=== PATIENT | female | born 1990 | race American Indian/Alaskan Native ===

== ENCOUNTER 2017-07-11 14:27 | Emergency (ER) | payer SELFPAY ==
[2017-07-11] MEDS ORDERED: BENADRYL IV ONE (14:39)
[2017-07-11] MEDS ORDERED: NACL 0.9% 1000 ML 1,000 ML IV ONE (14:39)
[2017-07-11] MEDS ORDERED: PEPCID IV ONE (14:39)
--- NOTE | 2017-07-11 16:03 | Emergency Department Report ---
ED Allergic Reaction HPI - General Chief complaint: Allergic Reaction Stated complaint: ALLERGIC REACTION Time Seen by Provider: 07/11/17 14:39 Source: patient Mode of arrival: Ambulatory Limitations: No Limitations - History of Present Illness Initial Comments: This is a 26-year-old female nontoxic, well nourished in appearance, no acute signs of distress presents to the ED with c/o of allergic reactions and hives x1 hour. Patient stated she was using a clean solution and spilled on her body and developed itching and hives right away. Patient denies difficulty breathing , facial swelling, lip swelling, shortness of breath, fever, chills, nausea, vomiting, chest pain. Patient states has history of similar episode. Patient states allergies to Motrin and Tylenol with past medical history of eczema and chronic hives. MD Complaint: allergic reaction, hives -: This afternoon Exposure: other (chemical products) Symptoms: rash, itching. denies: facial swelling, lip swelling, difficulty swallowing, difficulty breathing, orolingual swelling, hoarseness, syncopy, dizziness, nausea, vomiting, abdominal pain Severity: mild Treatment Prior to Arrival: none Previous Allergy History: prior ED visit(s) - Related Data Previous Rx's Medication Instructions Recorded Last Taken Type hydrOXYzine PAMOATE [Vistaril] 25 mg PO Q6HR PRN #30 capsule 04/06/15 Unknown Rx EPINEPHrine (NF) [Epipen (Nf)] 0.3 mg IM ONCE #1 syringekit 07/27/15 Unknown Rx Prednisone [predniSONE 10 mg 10 mg PO .TAPER #1 tab.ds.pk 07/27/15 Unknown Rx (6-Day Pack, 21 Tabs)] predniSONE [Deltasone] 40 mg PO QDAY #8 tab 01/22/16 Unknown Rx Famotidine [Pepcid] 20 mg PO BID #10 tablet 02/25/16 Unknown Rx diphenhydrAMINE [Benadryl CAP] 50 mg PO Q8HR PRN #20 capsule 03/20/16 Unknown Rx EPINEPHrine [Epipen 2-Johann] 0.3 mg IM DAILY PRN #2 ml 04/14/16 Unknown Rx Famotidine [Pepcid] 20 mg PO BID #14 tablet 04/14/16 Unknown Rx Prednisone [predniSONE 10 mg 10 mg PO .TAPER #1 tab.ds.pk 04/14/16 Unknown Rx (6-Day Pack, 21 Tabs)] diphenhydrAMINE [Benadryl CAP] 25 mg PO Q6HR PRN #30 capsule 04/14/16 Unknown Rx diphenhydrAMINE [Benadryl CAP] 25 mg PO Q6HR PRN #20 capsule 07/11/17 Unknown Rx predniSONE [Deltasone] 40 mg PO QDAY #5 tab 07/11/17 Unknown Rx Allergies Allergy/AdvReac Type Severity Reaction Status Date / Time acetaminophen [From Tylenol] Allergy Hives Verified 02/28/15 13:46 ibuprofen [From Advil] Allergy Hives Verified 02/28/15 13:46 ED Review of Systems ROS: Stated complaint: ALLERGIC REACTION Other details as noted in HPI Constitutional: denies: chills, fever Eyes: denies: eye pain, eye discharge, vision change ENT: denies: ear pain, throat pain Respiratory: denies: cough, shortness of breath, wheezing Cardiovascular: denies: chest pain, palpitations Endocrine: no symptoms reported Gastrointestinal: denies: abdominal pain, nausea, diarrhea Genitourinary: denies: urgency, dysuria, discharge Musculoskeletal: denies: back pain, joint swelling, arthralgia Skin: rash. denies: lesions Neurological: denies: headache, weakness, paresthesias Psychiatric: denies: anxiety, depression Hematological/Lymphatic: denies: easy bleeding, easy bruising ED Past Medical Hx - Past Medical History Previous Medical History?: Yes Additional medical history: eczema. Chronic hives - Surgical History Past Surgical History?: No - Social History Smoking Status: Former Smoker Substance Use Type: Alcohol, Non Opiate Pain - Medications Home Medications: Home Medications Medication Instructions Recorded Confirmed Last Taken Type hydrOXYzine PAMOATE [Vistaril] 25 mg PO Q6HR PRN #30 capsule 04/06/15 Unknown Rx EPINEPHrine (NF) [Epipen (Nf)] 0.3 mg IM ONCE #1 syringekit 07/27/15 Unknown Rx Prednisone [predniSONE 10 mg 10 mg PO .TAPER #1 tab.ds.pk 07/27/15 Unknown Rx (6-Day Pack, 21 Tabs)] predniSONE [Deltasone] 40 mg PO QDAY #8 tab 01/22/16 Unknown Rx Famotidine [Pepcid] 20 mg PO BID #10 tablet 02/25/16 Unknown Rx diphenhydrAMINE [Benadryl CAP] 50 mg PO Q8HR PRN #20 capsule 03/20/16 Unknown Rx EPINEPHrine [Epipen 2-Johann] 0.3 mg IM DAILY PRN #2 ml 04/14/16 Unknown Rx Famotidine [Pepcid] 20 mg PO BID #14 tablet 04/14/16 Unknown Rx Prednisone [predniSONE 10 mg 10 mg PO .TAPER #1 tab.ds.pk 04/14/16 Unknown Rx (6-Day Pack, 21 Tabs)] diphenhydrAMINE [Benadryl CAP] 25 mg PO Q6HR PRN #30 capsule 04/14/16 Unknown Rx diphenhydrAMINE [Benadryl CAP] 25 mg PO Q6HR PRN #20 capsule 07/11/17 Unknown Rx predniSONE [Deltasone] 40 mg PO QDAY #5 tab 07/11/17 Unknown Rx ED Physical Exam - General Limitations: No Limitations General appearance: alert, in no apparent distress - Head Head exam: Present: atraumatic, normocephalic - Eye Eye exam: Present: normal appearance, PERRL, EOMI. Absent: scleral icterus, conjunctival injection, nystagmus, periorbital swelling, periorbital tenderness Pupils: Present: normal accommodation - ENT ENT exam: Present: normal exam, normal orophraynx, mucous membranes moist, TM's normal bilaterally, normal external ear exam - Neck Neck exam: Present: normal inspection, full ROM. Absent: tenderness, meningismus, lymphadenopathy, thyromegaly - Respiratory Respiratory exam: Present: normal lung sounds bilaterally. Absent: respiratory distress, wheezes, rales, rhonchi, stridor, chest wall tenderness, accessory muscle use, decreased breath sounds, prolonged expiratory - Cardiovascular Cardiovascular Exam: Present: regular rate, normal rhythm, normal heart sounds. Absent: bradycardia, tachycardia, irregular rhythm, systolic murmur, diastolic murmur, rubs, gallop - GI/Abdominal GI/Abdominal exam: Present: soft, normal bowel sounds. Absent: distended, tenderness, guarding, rebound, rigid, diminished bowel sounds - Rectal Rectal exam: Present: deferred - Extremities Exam Extremities exam: Present: normal inspection, full ROM, normal capillary refill. Absent: tenderness, pedal edema, joint swelling, calf tenderness - Back Exam Back exam: Present: normal inspection, full ROM. Absent: tenderness, CVA tenderness (R), CVA tenderness (L), muscle spasm, paraspinal tenderness, vertebral tenderness, rash noted - Neurological Exam Neurological exam: Present: alert, oriented X3, CN II-XII intact, normal gait, reflexes normal - Psychiatric Psychiatric exam: Present: normal affect, normal mood - Skin Skin exam: Present: warm, dry, intact, normal color, rash, urticaria - Other Other exam information: No facial swelling or lip swelling. No angio edema. ED Course Vital Signs 07/11/17 07/11/17 14:30 14:50 Temperature 98.4 F Pulse Rate 89 Respiratory 22 22 Rate Blood Pressure 119/57 O2 Sat by Pulse 99 99 Oximetry - Reevaluation(s) Reevaluation #1: 07/11/17 16:04 Patient is speaking in full sentences with no signs of distress noted. ED Medical Decision Making - Medical Decision Making his is a 26-year-old female who presents with reaction. Patient stable and was examined by me. There is no sign of angioedema on examination. The patient received 1 L normal saline, Pepcid, Benadryl, and Solu-Medrol which patient stated his symptoms itching and rash has significantly subsided. Patient was instructed not to operate any machinery after discharge from his Benadryl which patient stated she was at a family member driving her home. She is discharged with prednisone and Benadryl. Patient was instructed Follow-up with a primary care doctor in 3-5 days for possible given prescription for EpiPen or if symptoms worsen and continue return to emergency room as soon as possible. At time time of discharge, the patient does not seem toxic or ill in appearance. No acute signs of distress noted. Patient agrees to discharge treatment plan of care. No further questions noted by the patient. Critical care attestation.: If time is entered above; I have spent that time in minutes in the direct care of this critically ill patient, excluding procedure time. ED Disposition Clinical Impression: Allergic reaction Qualifiers: Encounter type: initial encounter Qualified Code(s): T78.40XA - Allergy, unspecified, initial encounter Disposition: -01 TO HOME OR SELFCARE Is pt being admited?: No Does the pt Need Aspirin: No Condition: Stable Instructions: Urticaria (ED), Allergies (ED), Prednisone (By mouth), Diphenhydramine (By mouth) Additional Instructions: Follow-up with a primary care doctor in 3-5 days for possible given prescription for EpiPen or if symptoms worsen and continue return to emergency room as soon as possible. Do not operate any machinery after discharge due to drowsiness of Benadryl Prescriptions: diphenhydrAMINE [Benadryl CAP] 25 mg PO Q6HR PRN #20 capsule PRN Reason: Itching predniSONE [Deltasone] 40 mg PO QDAY #5 tab Referrals: MEGAN STRINGER MD [Primary Care Provider] - 3-5 Days PRIMARY CARE, [Referring] - 3-5 Days [facility] [Outside] - 3-5 Days [facility] [Outside] - 3-5 Days Forms: Work/School Release Form(ED)
[2017-07-11 16:14] VITALS: BP 135/83
== END 2017-07-11 16:15 | disposition home or self-care (01) ==
LOC: ED 14:27
DX: T78.40XA Allergy, unspecified, initial encounter (principal); Z87.891 Personal history of nicotine dependence; Z88.6 Allergy status to analgesic agent; X58.XXXA Exposure to other specified factors, initial encounter
CPT/HCPCS: 96361; 96374; 96375; 99282; J1200; J2930; J7030

== ENCOUNTER 2017-11-28 14:48 | Emergency (ER) | payer SELFPAY ==
[2017-11-28 19:11] VITALS: BP 120/72
--- NOTE | 2017-11-28 19:35 | Emergency Department Report ---
HPI - General Chief Complaint: Allergic Reaction Time Seen by Provider: 11/28/17 19:26 - HPI HPI: 27-year-old -[place] female comes in for having hives itching in hoarseness. Patient reports that she's had allergy testing that was negative for any allergens. Patient has prescribed Pepcid, Benadryl and anti-itch medicine that relieves his symptoms. Patient has been on the medication for the last 3 months she reports she is out of meds. ED Past Medical Hx - Past Medical History Previous Medical History?: No Additional medical history: eczema. Chronic hives - Surgical History Past Surgical History?: No - Social History Smoking Status: Never Smoker Substance Use Type: Alcohol - Medications Home Medications: Home Medications Medication Instructions Recorded Confirmed Last Taken Type EPINEPHrine (NF) [Epipen (Nf)] 0.3 mg IM ONCE #1 syringekit 07/27/15 Unknown Rx Prednisone [predniSONE 10 mg 10 mg PO .TAPER #1 tab.ds.pk 07/27/15 Unknown Rx (6-Day Pack, 21 Tabs)] predniSONE [Deltasone] 40 mg PO QDAY #8 tab 01/22/16 Unknown Rx Famotidine [Pepcid] 20 mg PO BID #10 tablet 02/25/16 Unknown Rx diphenhydrAMINE [Benadryl CAP] 50 mg PO Q8HR PRN #20 capsule 03/20/16 Unknown Rx EPINEPHrine [Epipen 2-Johann] 0.3 mg IM DAILY PRN #2 ml 04/14/16 Unknown Rx diphenhydrAMINE [Benadryl CAP] 25 mg PO Q6HR PRN #30 capsule 04/14/16 Unknown Rx diphenhydrAMINE [Benadryl CAP] 25 mg PO Q6HR PRN #20 capsule 07/11/17 Unknown Rx predniSONE [Deltasone] 40 mg PO QDAY #5 tab 07/11/17 Unknown Rx Famotidine [Pepcid] 20 mg PO BID #14 tablet 11/28/17 Unknown Rx Prednisone [predniSONE 10 mg 10 mg PO .TAPER #1 tab.ds.pk 11/28/17 Unknown Rx (6-Day Pack, 21 Tabs)] hydrOXYzine PAMOATE [Vistaril] 25 mg PO Q6HR PRN #30 capsule 11/28/17 Unknown Rx ED Review of Systems ROS: Stated complaint: ALLERGIC REACTION Other details as noted in HPI Constitutional: denies: chills, fever Eyes: denies: eye pain, eye discharge, vision change ENT: denies: ear pain, throat pain Respiratory: denies: shortness of breath Endocrine: no symptoms reported Gastrointestinal: denies: abdominal pain, nausea, diarrhea Genitourinary: denies: urgency, dysuria, discharge Musculoskeletal: denies: back pain, joint swelling, arthralgia Skin: rash, lesions, pruritus Neurological: denies: headache, weakness, paresthesias Psychiatric: denies: anxiety, depression Hematological/Lymphatic: denies: easy bleeding, easy bruising Physical Exam - Physical Exam Vital Signs: Vital Signs 11/28/17 11/28/17 15:18 19:09 Temperature 99.1 F 97.7 F Pulse Rate 70 81 Respiratory 18 16 Rate Blood Pressure 126/75 120/72 O2 Sat by Pulse 100 99 Oximetry Physical Exam: GENERAL: Alert and oriented x3, no apparent distress, Normal Gait, atraumatic. HEAD: Head is normocephalic and a-traumatic. EYES: Extra ocular muscles are intact. Pupils are equal, round, and reactive to light and accommodation. MOUTH:Mouth is well hydrated and without lesions. Tonsils nonerythematous or swollen, Uvula midline, Tongue not elevated. Mucous membranes are moist. Posterior pharynx clear, no exudate or lesions. Patent airways. NECK: Supple. Non edematous, LUNGS: Symetrical with respiration, No wheezing, no rales or crackles, CTAB. HEART: S1, S2 present, regular rate and rhythm without murmur, no rubs, no gallops. EXTREMITIES/MUSCULOSKELETAL: No cyanosis, clubbing, rash, lesions or edema. Full ROM bilaterally. NEUROLOGIC: No focal Deficit, Cranial nerves II through XII are grossly intact. No loss of sensation, No facial droop, Negative rhomberg. PSYCHIATRIC: Mood is congruent with affect, denies suicidal or homicidal ideations. SKIN: Multiple urticaria arms, leg neck, chest back , feet ED Course Vital Signs 11/28/17 11/28/17 15:18 19:09 Temperature 99.1 F 97.7 F Pulse Rate 70 81 Respiratory 18 16 Rate Blood Pressure 126/75 120/72 O2 Sat by Pulse 100 99 Oximetry - Reevaluation(s) Reevaluation #1: 11/28/17 20:12 Patient reports that she feels much better and that her urticaria is starting to dissipate. ED Medical Decision Making - Medical Decision Making Patient's been evaluated by this provider fast track. Patient has chronic urticaria and has been currently taking Benadryl Pepcid and anti-itch medication. Patient has been followed by an burnishing machine operator. She currently has ran out of her medications and has come in for an outbreak. Discussed the patient we'll give her Pepcid prednisone and Benadryl and discharged her on Pepcid prednisone and Atarax. Patient verbalized understanding. Critical care attestation.: If time is entered above; I have spent that time in minutes in the direct care of this critically ill patient, excluding procedure time. ED Disposition Clinical Impression: Urticaria Allergic reaction Qualifiers: Encounter type: sequela Qualified Code(s): T78.40XS - Allergy, unspecified, sequela Disposition: DC- TO HOME OR SELFCARE Is pt being admited?: No Does the pt Need Aspirin: No Condition: Stable Instructions: Urticaria (ED), Allergies (ED) Additional Instructions: Please take medication as prescribed. Please follow up with her primary care provider or allergies. Prescriptions: Famotidine [Pepcid] 20 mg PO BID #14 tablet hydrOXYzine PAMOATE [Vistaril] 25 mg PO Q6HR PRN #30 capsule PRN Reason: Itching Prednisone [predniSONE 10 mg (6-Day Pack, 21 Tabs)] 10 mg PO .TAPER #1 tab.ds.pk Referrals: PRIMARY CARE, [Primary Care Provider] - 3-5 Days Forms: Accompanied Note, Work/School Release Form(ED)
[2017-11-28] MEDS ORDERED: BENADRYL IV ONE (19:36)
[2017-11-28] MEDS ORDERED: PEPCID IV ONE (19:36)
== END 2017-11-28 20:26 | disposition home or self-care (01) ==
LOC: ED 14:48
DX: T78.40XA Allergy, unspecified, initial encounter (principal); X58.XXXA Exposure to other specified factors, initial encounter; Z88.6 Allergy status to analgesic agent
CPT/HCPCS: 96374; 96375; 99282; J1200; J2930; 99281

== ENCOUNTER 2018-03-29 14:51 | Emergency (ER) | payer OTHER ==
[2018-03-29] MEDS ORDERED: PEPCID IV ONE (15:09)
[2018-03-29] MEDS ORDERED: SOLU-Medrol IV ONE (15:09)
[2018-03-29] MEDS ORDERED: NACL 0.9% 1000 ML 1,000 ML IV ONE (15:09)
[2018-03-29] MEDS ORDERED: BENADRYL IV ONE (15:09)
[2018-03-29] MEDS ORDERED: ADRENALIN IM ONE (15:10)
[2018-03-29 15:39] LABS: Basophils % (Auto) 0.3 % (0.0-1.8); Hematocrit 46.6 % (30.3-42.9); Hemoglobin 15.7 gm/dl (10.1-14.3); Lymphocytes # (Auto) 2.2 K/mm3 (1.2-5.4); Mean Corpuscular HGB Conc 34 % (30-34); Mean Corpuscular Hemoglobin 30 pg (28-32); Mean Corpuscular Volume 91 fl (79-97); Monocytes # (Auto) 0.5 K/mm3 (0.0-0.8); Monocytes % (Auto) 5.9 % (0.0-7.3); Platelet Count 313 K/mm3 (140-440); Red Blood Count 5.15 M/mm3 (3.65-5.03); Red Cell Distribution Width 12.2 % (13.2-15.2)
[2018-03-29 15:50] LABS: Alanine Aminotransferase 17 units/L (7-56); Albumin 4.2 g/dL (3.9-5); BUN/Creatinine Ratio 10; Blood Urea Nitrogen 7 mg/dL (7-17); Calcium 9.1 mg/dL (8.4-10.2); Hemolysis Index 23
[2018-03-29] MEDS ORDERED: ZOFRAN ONE (16:17)
[2018-03-29] MEDS ORDERED: ZOFRAN IV ONE (16:21)
--- NOTE | 2018-03-29 16:52 | Emergency Department Report ---
HPI - General Chief Complaint: Allergic Reaction Time Seen by Provider: 03/29/18 15:08 - HPI HPI: The patient's 27-year-old female who presents for evaluation of itching and rash. The patient reports developing allergic reaction on a word, possible one hour prior to arrival. She complains of constant severe rash and itching throughout the extremities and torso, associated with mild dyspnea. The patient denies chest pain, coughing, wheezing, throat pain, neck stiffness, dysphagia, stridor, drooling, difficulty tolerating secretions, abdominal pain. ED Past Medical Hx - Past Medical History Previous Medical History?: Yes Additional medical history: eczema. Chronic hives - Surgical History Past Surgical History?: No - Social History Smoking Status: Never Smoker Substance Use Type: None - Medications Home Medications: Home Medications Medication Instructions Recorded Confirmed Last Taken Type EPINEPHrine (NF) [Epipen (Nf)] 0.3 mg IM ONCE #1 syringekit 07/27/15 Unknown Rx Prednisone [predniSONE 10 mg 10 mg PO .TAPER #1 tab.ds.pk 07/27/15 Unknown Rx (6-Day Pack, 21 Tabs)] predniSONE [Deltasone] 40 mg PO QDAY #8 tab 01/22/16 Unknown Rx Famotidine [Pepcid] 20 mg PO BID #10 tablet 02/25/16 Unknown Rx diphenhydrAMINE [Benadryl CAP] 50 mg PO Q8HR PRN #20 capsule 03/20/16 Unknown Rx EPINEPHrine [Epipen 2-Johann] 0.3 mg IM DAILY PRN #2 ml 04/14/16 Unknown Rx diphenhydrAMINE [Benadryl CAP] 25 mg PO Q6HR PRN #30 capsule 04/14/16 Unknown Rx diphenhydrAMINE [Benadryl CAP] 25 mg PO Q6HR PRN #20 capsule 07/11/17 Unknown Rx predniSONE [Deltasone] 40 mg PO QDAY #5 tab 07/11/17 Unknown Rx Famotidine [Pepcid] 20 mg PO BID #14 tablet 11/28/17 Unknown Rx Prednisone [predniSONE 10 mg 10 mg PO .TAPER #1 tab.ds.pk 11/28/17 Unknown Rx (6-Day Pack, 21 Tabs)] hydrOXYzine PAMOATE [Vistaril] 25 mg PO Q6HR PRN #30 capsule 11/28/17 Unknown Rx EPINEPHrine (NF) [Epipen (Nf)] 0.3 mg IM ONCE #1 syringekit 03/29/18 Unknown Rx diphenhydrAMINE [Benadryl CAP] 50 mg PO Q8HR PRN #30 capsule 03/29/18 Unknown Rx predniSONE [Deltasone] 20 mg PO QDAY #5 tab 03/29/18 Unknown Rx ED Review of Systems ROS: Stated complaint: ALLERGIC REACTION Other details as noted in HPI Constitutional: denies: fever ENT: denies: throat or neck pain Respiratory: denies: cough reports shortness of breath Cardiovascular: denies: chest pain Endocrine: denies unexplained weight loss or gain Gastrointestinal: denies: abdominal pain, nausea Genitourinary: denies: dysuria Musculoskeletal: denies: leg swelling Skin: reports rash Neurological: denies: headache Hematological/Lymphatic: denies: easy bleeding or easy bruising Psych: denies sadness or hopelessness Physical Exam - Physical Exam Vital Signs: Vital Signs 03/29/18 14:59 Temperature 97.7 F Pulse Rate 104 H Respiratory 18 Rate Blood Pressure 135/87 O2 Sat by Pulse 98 Oximetry Physical Exam: General: well-nourished, well-developed, no acute distress Head: Normocephalic, atraumatic Eyes: normal sclera ENT: Mucous membranes are pale and dry, no pooling of secretions in the oropharynx, no uvula or soft palate deviation or swelling, no stridor Neck: No neck stiffness, no cervical adenopathy Respiratory: Breath sounds equal bilaterally, no wheezing, rales, or rhonchi Cardio: S1 and S2 present, no murmurs, rubs, gallops, capillary refill is delayed Abdomen: Normoactive bowel sounds, soft abdomen, no rigidity, no guarding or rebound tenderness Chest WALL/Back: No tenderness to palpation of the chest wall, no CVA tenderness with percussion Musc: No pitting edema Skin: Red raised blanching wheels present to bilateral extremities and torso Neuro: no facial drooping, normal speech Psych: Normal affect ED Course Vital Signs 03/29/18 14:59 Temperature 97.7 F Pulse Rate 104 H Respiratory 18 Rate Blood Pressure 135/87 O2 Sat by Pulse 98 Oximetry ED Medical Decision Making - Lab Data Result diagrams: 03/29/18 15:27 03/29/18 15:27 - Medical Decision Making The patient was seen and examined by myself. The patient is placed on a cellophane press operator and continuous pulse ox. On initial evaluation, the patient was found to be in no distress. Evaluation orders were placed. The patient is given IV Benadryl for itching, and IV Solu-Medrol and an IM dose of epinephrine for treatment of her anaphylaxis. Lab results are unremarkable including negative present tests. The patient was monitored in the emergency dept for greater than 2 hours without any signs of impending airway compromise. The patient was reevaluated and reported that their symptoms were markedly improved. The patient is stable for discharge with outpatient follow-up. The patient is given follow-up and return instructions. The patient expressed understanding and agreed with the plan. The patient is discharged in stable condition. Critical care attestation.: If time is entered above; I have spent that time in minutes in the direct care of this critically ill patient, excluding procedure time. ED Disposition Clinical Impression: Urticaria Allergic reaction Qualifiers: Encounter type: initial encounter Qualified Code(s): T78.40XA - Allergy, unspecified, initial encounter Anaphylaxis Qualifiers: Encounter type: initial encounter Qualified Code(s): T78.2XXA - Anaphylactic shock, unspecified, initial encounter Disposition: DC-01 TO HOME OR SELFCARE Is pt being admited?: No Does the pt Need Aspirin: No Condition: Stable Instructions: Anaphylaxis (ED) Referrals: [facility] [Outside] - 3-5 Days Time of Disposition: 16:52
[2018-03-29 19:41] VITALS: BP 112/84
== END 2018-03-29 19:42 | disposition home or self-care (01) ==
LOC: ED 14:51
DX: T78.2XXA Anaphylactic shock, unspecified, initial encounter (principal); T78.40XA Allergy, unspecified, initial encounter; L50.9 Urticaria, unspecified; G89.29 Other chronic pain
CPT/HCPCS: 36415; 80053; 84703; 85025; 96372; 96374; 96375; 99284; J0171; J1200; J2405; J2930; J7030